=== PATIENT | female | born 1985 | race Caucasian/White ===

== ENCOUNTER 2021-10-10 07:23 | Emergency (ER) | payer OTHER, SELFPAY ==
[2021-10-10 07:55] VITALS: BP 150/83; PULSE 85; RESP 18; TEMP 37; O2SAT 98
--- NOTE | 2021-10-10 09:44 | ED.SKABFB ---
HPI - Skin/Abscess/Foreign Bdy General Chief complaint: Skin/Abscess/Foreign Body Stated complaint: abscess on both arms Time Seen by Provider: 10/10/21 09:08 Source: patient Mode of arrival: ambulatory History of Present Illness HPI narrative: 36-year-old female with a past medical history of IVDA presenting to the ED complaining of multiple abscesses to bilateral arms for a long time. Admits to area is likely drainable at this time, with 1 abscess on LUE draining since yesterday as tried to drain herself at home. Denies known fever, chills. Reports injects heroin in 2 areas, just moved back to [place] to try to get help/detox MD complaint: abscess/boil Onset (ago): unknown Related Data Previous Rx's Medication Instructions Recorded acetaminophen 500 mg tablet 500 mg PO Q6H PRN fever or pain 10/10/21 (Tylenol Extra Strength) #14 tabs cephalexin 500 mg capsule 500 mg PO QID 7 days #28 caps 10/10/21 doxycycline hyclate 100 mg tablet 100 mg PO BID 7 days #14 tabs 10/10/21 ibuprofen 800 mg tablet 800 mg PO Q8H PRN pain #14 tabs 10/10/21 Allergies Allergy/AdvReac Type Severity Reaction Status Date / Time No Known Allergies Allergy Verified 10/10/21 09:30 Review of Systems Review of Systems: Constitutional: No Fever, No Chills ENT/Mouth: No Ear Pain, No Nasal Congestion, No Sinus Pain, No sore throat, No Rhinorrhea, No Swallowing Difficulty Cardiovascular: No Chest Pain, No SOB Respiratory: No Cough, No Wheezing Gastrointestinal: No Nausea, No Vomiting, No Diarrhea, No Constipation, No Abdominal pain Genitourinary: No Dysuria, No Urinary Incontinence/retention, No Urgency, No Flank Pain Musculoskeletal: No joint pain, No Myalgias, No Joint Swelling Skin: + Skin Lesions, No rash Neuro: No Weakness, No Numbness, No Paresthesias Yes all other systems are reviewed and are negative Constitutional: Constitutional: Reports as per [facility] Past Medical History Attestation statement: The following information was validated with the patient. Social History Social History Advance Directives: No Advance Directives Information Provided: Yes Physical Exam Vital Signs: Vital Signs: Last Vital Signs Temp 98.6 F 10/10/21 07:55 Pulse 85 10/10/21 07:55 Resp 18 10/10/21 07:55 BP 150/83 H 10/10/21 07:55 Pulse Ox 98 10/10/21 07:55 O2 Del Method 10/10/21 07:55 BMI result Body Mass Index 20.0 Const: General: cooperative, healthy appearing and no acute distress Orientation/consciousness: patient oriented x3 Limitations: no limitations HEENT: Head: Yes normal to inspection and Yes atraumatic Ears: hearing grossly normal bilaterally General nose exam: Normal external nose present Face and sinus: Yes normal facial exam Eyes: General: appearance normal, both eyes and all related structures EOM: EOMs intact bilaterally Neck: Neck: Yes normal visual inspection and Yes no meningeal signs Resp: Effort & Inspection: normal respiratory effort and no respiratory distress Cardio: Rate: regular rate Heart sounds: S1 normal heart sound present and S2 normal heart sound present Peripheral pulses: radial pulses present Skin: Other: + multiple small indurated abscesses to bilateral upper extremities. No crepitus RUE with 3 small fluctuant abscess to proximal antecupital area. No induration or cellulitis LUE with draining fluctuant abscess to distal humerus,+ttp and +indurated abscess to antecupital area with warmth and tenderness. No streaking Neuro: General: patient oriented x3, tone normal and no meningeal signs Gait exam (Neuro): Normal gait present Extrem: General: Yes normal to inspection Course Course Course Narrative: Three small abscesses to right antecubital area I&D'd, and 1 abscess to left distal humerus I&D'd Patient given 1st dose of doxycycline and Keflex in the ED. Discussed worrisome signs and symptoms and strict return precautions. Offered patient Speak with a recovery team however reports already plugged in and spoke with recovery/has outpatient resources MDM - Skin/Abscess/Foreign Bdy MDM Narrative Medical decision making narrative: 36-year-old female with a past medical history of IVDA presenting to the ED complaining of multiple abscesses to bilateral arms for a long time. On exam vital signs stable, afebrile, nontoxic-appearing, physical exam as above with multiple indurated abscesses and 2 abscesses which can be drained today. No appreciable cellulitis/streaking/lymphangitis Plan: I & D, p.o. antibiotics Differential Diagnosis Differential diagnosis: Likely abscess of skin or subcutaneous tissue Medical Records Attestation: I reviewed the patient's medical records. Lab Data Attestation: I reviewed the patient's lab results. Procedures Abscess I/D Site: upper extremity (RUE x3 and LUE x1) Side (if applicable): left and right Local Anesthetic: lidocaine 1% Amount of anesthesia used (mL): 4 Technique: incised with blade Sent for culture/gram staining?: No Irrigation: No Packing used?: none Discharge Plan Discharge Clinical Impression: Abscess of skin or subcutaneous tissue, Cellulitis Patient Disposition: Home, Self-Care Instructions: Cellulitis (ED), Abscess (ED), Abscess Follow-up (ED), Warm Compress or Soak (ED) Additional Instructions: Your abscesses were drained today in the emergency department. You need to take antibiotics, doxycycline and Keflex as prescribed, do not miss any doses, take until completion. Avoid the sun while in doxycycline/were sun block as makes you sensitive to the sun You should be re-evaluated in a few days. If abscesses become larger, more painful, you have fever, red streaking up her arm return to the emergency department Prescriptions: New ibuprofen 800 mg tablet 800 mg PO Q8H PRN (Reason: pain) Qty: 14 0RF acetaminophen [Tylenol Extra Strength] 500 mg tablet 500 mg PO Q6H PRN (Reason: fever or pain) Qty: 14 0RF cephalexin 500 mg capsule 500 mg PO QID 7 Days Qty: 28 0RF doxycycline hyclate 100 mg tablet 100 mg PO BID 7 Days Qty: 14 0RF Referrals: ED Physician,Generic [Emergency Provider] - 2 days (For re-evaluation)
[2021-10-10] MEDS: Ibuprofen 600 MG TABLET PO (10:52)
[2021-10-10] MEDS: cephALEXin 500 MG CAPSULE PO (10:53)
[2021-10-10] MEDS: Lidocaine HCl 1 % MPF 5 ML VIAL SUBCUT (10:53)
== END 2021-10-10 11:15 | disposition home or self-care (01) ==
PROVIDERS: Emergency Provider Emergency Medicine Emergency Medical Services
DX: L02.414 Cutaneous abscess of left upper limb (principal); L02.413 Cutaneous abscess of right upper limb; L03.114 Cellulitis of left upper limb; L03.113 Cellulitis of right upper limb; F11.10 Opioid abuse, uncomplicated
CPT/HCPCS: 10061; 99283; 99284